=== PATIENT | male | born 1995 | race Caucasian/White ===

== ENCOUNTER 2016-03-06 00:44 | Emergency (ER) | payer OTHER ==
--- NOTE | 2016-03-06 07:36 | RAD ---
CHEST 2 VIEWS HISTORY: Hemoptysis. History of hemophilia. Frontal and lateral chest radiographs dated 03/06/2016. COMPARISON: None. FINDINGS: FOCAL AIRSPACE OPACITY: No gross airspace consolidation. PLEURAL EFFUSION: None. CARDIOMEDIASTINAL SILHOUETTE: Nonenlarged. PNEUMOTHORAX: None identified. OSSEOUS STRUCTURES: No grossly destructive lesions. IMPRESSION: No acute cardiopulmonary process noted.
== END 2016-03-06 01:59 | disposition home or self-care (01) ==
LOC: ED 00:44
DX: J35.8 Other chronic diseases of tonsils and adenoids (principal); D66 Hereditary factor VIII deficiency; Z88.2 Allergy status to sulfonamides